=== PATIENT | male | born 1990 | race Native Hawaiian/Other Pacific Islander ===

== ENCOUNTER 2016-12-08 21:13 | Emergency (ER) | payer SELFPAY ==
[2016-12-08 21:16] VITALS: BP 118/77; PULSE 76; RESP 20; TEMP 98.7; O2SAT 99
[2016-12-08] MEDS ORDERED: LIDOCAINE HCL 1% 50 ML VIAL INFIL ONE (21:45)
--- NOTE | 2016-12-08 21:49 | PD ---
HPI Chief Complaint: Skin Problem Time Seen by Provider: 21:34 Travel History International Travel<30 days: No Contact w/Intl Traveler<30days: No Traveled to known affect area: No History of Present Illness HPI 26-year-old male presents to the emergency room for evaluation of right thumb redness, pain, and drainage that started earlier today. Symptoms are localized to the proximal nail fold. Patient has history of eczema to bilateral hands and scratched his thumb. Since then, his symptoms developed. He applied topical Fucidin (fusidic acid that he got from [place]) twice today as well as povidone iodine. Patient is concerned for the swelling to the thumb. PFSH Past Medical History Medical History: Denies Significant Hx Diminished Hearing: No Tetanus Vaccination: < 5 Years Influenza Vaccination: No Past Surgical History Other Surgery: Yes (MRSA debridement to right upper inner leg) Social History Alcohol Use: Yes (Occ.) Tobacco Use: Yes (3/4 PPD) Substance Use: No Allergies-Medications (Allergen,Severity, Reaction): Coded Allergies: No Known Allergies (Unverified , 12/08/16) Reported Meds & Prescriptions Reported Meds & Active Scripts Active Mupirocin Topical (Mupirocin) 2 % Oint 1 Applic TOPICAL BID Review of Systems Except as stated in HPI: all other systems reviewed are Neg Physical Exam Narrative GENERAL: Well-nourished, well-developed male in no acute distress. Afebrile. Ambulatory. SKIN: Focused skin assessment warm/dry. There is mild erythema of the right proximal nail fold with nonpurulent drainage. No fluctuance. No lymphangitis. HEAD: Normocephalic. EYES: No scleral icterus. No injection or drainage. NECK: Supple, trachea midline. No JVD or lymphadenopathy. CARDIOVASCULAR: Regular rate and rhythm without murmurs, gallops, or rubs. RESPIRATORY: Breath sounds equal bilaterally. No accessory muscle use. MUSCULOSKELETAL: No cyanosis. For intervention of the right hand. No obvious edema. Data Data Last Documented VS Vital Signs Date Time Temp Pulse Resp B/P (MAP) Pulse Ox O2 Delivery O2 Flow Rate FiO2 12/08/16 21:16 98.7 76 20 118/77 (91) 99 Orders Orders Lidocaine 1% Inj (50 Ml) (Xylocaine 1% I (12/08/16 21:45) [facility] Medical Decision Making Medical Screen Exam Complete: Yes Emergency Medical Condition: Yes Medical Record Reviewed: Yes Differential Diagnosis Paronychia, impetigo, MRSA Narrative Course 26-year-old male presents to the emergency room for evaluation of right thumb swelling, redness, and increasing pain that started earlier today. Patient has history of eczema and scratched his thumb earlier. Shortly afterwards, he noticed mild yellow, non-purulent drainage. He applied [id number] antibiotic ointment without significant relief in symptoms. Patient is convinced that there is an abscess below the skin. Physical exam is unremarkable. There is very mild edema of the proximal nail fold on the right thumb without any erythema or fluctuance. It is nontender. There is spontaneous serosanguineous drainage but no purulent drainage. Patient was convinced that there is an abscess to the right thumb even after reassurance. At this time the paronychia was drained without any obvious drainage. Because the physical exam is so unremarkable, I see no indication for oral antibiotics. Patient has history of MRSA so he will be covered for impetigo with topical mupirocin. Told to follow up with a primary care physician or return for worsening symptoms including increasing redness, fluctuance, pain, or redness. He understands and agrees to plan. Procedures Procedure Narrative INCISION AND DRAINAGE OF ABSCESS: The area was prepped and was sterilely draped. A subcutaneous wheal of 1% lidocaine at with a total number 2 mL was used to anesthetize the area properly. A number 11 scalpel was used to make a 1 cm incision across the area of the abscess. The abscess was drained, complex loculations were broken down, and irrigated with normal saline. Dressing applied. Diagnosis Primary Impression: Paronychia of right thumb Referrals: Primary Care Physician Additional Instructions: Rest and drink plenty of fluids. Apply mupirocin twice daily for 7-10 days. Follow-up with a primary care physician. Return to the emergency room for worsening symptoms. Scripts Mupirocin Topical (Mupirocin Topical) 2 % Oint 1 APPLIC TOPICAL BID for Mgmt Bacterial Infection, #22 GM 0 Refills Prov: Sabino Roman MD 12/08/16 Disposition: 01 DISCHARGE HOME Condition: Stable Leticia Dwyer Dec 08, 2016 21:49
[2016-12-08] MEDS ORDERED: MUPI2OIN TOPICAL (21:57)
== END 2016-12-08 22:06 | disposition home or self-care (01) ==
LOC: PHEFT 21:13
DX: L03.011 Cellulitis of right finger (principal); F17.210 Nicotine dependence, cigarettes, uncomplicated
CPT/HCPCS: 10060